=== PATIENT | male | born 1935 | race Caucasian/White ===

== ENCOUNTER 2017-06-02 11:01 | Inpatient (IN) | payer OTHER, BC ==
[~2017-06-02] VITALS: Ht 182.9 cm; Wt 93.6 kg
[~2017-06-02 11:01] MED LIST: ALLOPURINOL300 MG PO; AMMONIUM LACTA140 GM TP; ASPIRIN EC325 MG PO; DUONEB 2.5-0.5 M3 ML AEROSOL; GLIMEPIRIDE2 MG PO; GLUCOSE GEL15 GM PO; LATANOPROST2.5 ML BOTH EYES; LIPITOR20 MG PO; LISINOPRIL20 MG PO; METOPROLOL TAR100 MG PO; METOPROLOL TART50 MG PO; NORCO 5/3251 TABLET PO; NORVASC10 MG PO; ROBITUSSIN DM118 ML PO; SIMVASTATIN40 MG PO; TIMOLOL MALEATE15 M1 BOTH EYES; TRAMADOL HCL50 MG PO; TYLENOL REGULA325 MG PO; WARFARIN SODIU2.5 MG PO
[2017-06-02 13:09] LABS: BASOPHIL (%) 0.4 % (0-1); BASOPHIL COUNT 0.1 K/uL (0-0.1); EOSINOPHIL (%) 0.1 % (0-5); HEMATOCRIT 40.1 % (38.0-50.0); HEMOGLOBIN 13.7 G/DL (12.5-16.6); IMMATURE GRANULOCYTE (%) 0.6 % (0.0-0.7); LYMPHOCYTE (%) 5.8 % (15-42); LYMPHOCYTE COUNT 0.8 K/uL (1.0-2.8); MCH 30.1 PG (29.0-34.0); MCHC 34.2 G/DL (30.0-36.0); MCV 88.1 FL (86-99); MONOCYTE (%) 9.2 % (3-12); MONOCYTE COUNT 1.3 K/uL (0-0.8); NEUTROPHIL (%) 83.9 % (45-76); NEUTROPHIL COUNT 11.9 K/uL (1.8-6.4); PLATELET COUNT 141 K/uL (156-360); RBC DIS.WIDTH-CV 13.4 % (11.8-14.6); RBC DIS.WIDTH-SD 43.8 % (39-53); RED BLOOD COUNT 4.55 M/uL (4.00-5.50); WHITE BLOOD COUNT 14.2 K/uL (4.1-10.2)
[2017-06-02 13:20] LABS: CHLORIDE 107 mEq/L (99-109); POTASSIUM 4.1 mEq/L (3.7-5.4); SODIUM 139 mEq/L (136-147)
[2017-06-02 13:21] LABS: INTER. NORMALIZED RATIO 1.3
[2017-06-02 13:22] LABS: GLUCOSE 134 mg/dL (70-99)
[2017-06-02 13:24] LABS: PTT 27.7 SEC (25-37)
[2017-06-02 13:26] LABS: CREATININE 1.1 mg/dL (0.6-1.3); GFR ESTIMATE (CALCULATED) > 59 mL/min/ (58.99-99999)
[2017-06-02 13:27] LABS: UREA NITROGEN (BUN) 21 mg/dL (9-23)
[2017-06-02] MEDS ORDERED: FUROSEMIDE40 MG PO (15:36)
[2017-06-02] MEDS ORDERED: ERGOCALCIF50000 UNIT PO (15:37)
[2017-06-02] MEDS ORDERED: COLACE100 MG PO (15:37)
[2017-06-02 16:14] LABS: TROP-I INTERPRETATION NEGATIVE; TROPONIN-I 0.02 ng/mL (0.0-0.30)
[2017-06-02 22:10] LABS: APPEARANCE SL.HAZY ((CLEAR)); BILIRUBIN NEGATIVE; BLOOD SMALL; COLOR YELLOW ((YELLOW)); GLUCOSE (STRIP) NEGATIVE; KETONES 20; LEUKOCYTES NEGATIVE; NITRITE NEGATIVE; PROTEIN (STRIP) NEGATIVE; SPECIFIC GRAVITY 1.018 (1.000-1.030)
[2017-06-02 22:14] LABS: BACTERIA RARE /HPF; EPITHELIAL CELLS NONE SEEN /HPF; HYALINE CASTS 0-5 /LPF; MUCUS TRACE /LPF; RED BLOOD CELLS 15-20 /HPF (0-5); UCUL ADDED? YES
[2017-06-02 22:40] LABS: TROP-I INTERPRETATION NEGATIVE; TROPONIN-I 0.08 ng/mL (0.0-0.30)
[2017-06-03 06:49] LABS: HEMATOCRIT 34.3 % (38.0-50.0); HEMOGLOBIN 11.7 G/DL (12.5-16.6); MCH 30.6 PG (29.0-34.0); MCHC 34.1 G/DL (30.0-36.0); MCV 89.8 FL (86-99); PLATELET COUNT 135 K/uL (156-360); RBC DIS.WIDTH-CV 13.8 % (11.8-14.6); RBC DIS.WIDTH-SD 45.1 % (39-53); RED BLOOD COUNT 3.82 M/uL (4.00-5.50); WHITE BLOOD COUNT 10.4 K/uL (4.1-10.2)
[2017-06-03 07:24] LABS: CHLORIDE 108 MEQ/L (99-109); GFR ESTIMATE (CALCULATED) > 59 mL/min/ (58.99-99999); GLUCOSE 140 mg/dL (70-99); POTASSIUM 4.5 MEQ/L (3.7-5.4); SODIUM 140 MEQ/L (136-147); UREA NITROGEN (BUN) 23 mg/dL (9-23)
[2017-06-03 12:28] VITALS: BP 116/58
[2017-06-03 15:42] VITALS: BP 123/59
[2017-06-03 19:58] VITALS: BP 140/84
[2017-06-03 23:48] VITALS: BP 143/68
[2017-06-04 03:52] VITALS: BP 147/74
[2017-06-04 05:54] LABS: BASOPHIL (%) 0.3 % (0-1); EOSINOPHIL (%) 0 % (0-5); HEMATOCRIT 33.5 % (38.0-50.0); IMMATURE GRANULOCYTE (%) 0.8 % (0.0-0.7); LYMPHOCYTE (%) 7.4 % (15-42); MCH 29.7 PG (29.0-34.0); MCHC 32.8 G/DL (30.0-36.0); MCV 90.5 FL (86-99); MONOCYTE (%) 13.1 % (3-12); MONOCYTE COUNT 1.8 K/uL (0-0.8); NEUTROPHIL (%) 78.4 % (45-76); NEUTROPHIL COUNT 10.5 K/uL (1.8-6.4); PLATELET COUNT 132 K/uL (156-360); RBC DIS.WIDTH-CV 14.1 % (11.8-14.6); RBC DIS.WIDTH-SD 46.4 % (39-53); WHITE BLOOD COUNT 13.3 K/uL (4.1-10.2)
[2017-06-04 08:22] VITALS: BP 119/64
[2017-06-04 11:06] VITALS: BP 146/84
[2017-06-04 20:00] VITALS: BP 123/60
[2017-06-04 23:23] VITALS: BP 142/88
[2017-06-05 06:01] LABS: BASOPHIL (%) 0.6 % (0-1); BASOPHIL COUNT 0.1 K/uL (0-0.1); EOSINOPHIL (%) 0.9 % (0-5); EOSINOPHIL COUNT 0.1 K/uL (0-0.3); HEMATOCRIT 30.8 % (38.0-50.0); HEMOGLOBIN 10.3 G/DL (12.5-16.6); IMMATURE GRANULOCYTE (%) 0.9 % (0.0-0.7); LYMPHOCYTE (%) 12.7 % (15-42); LYMPHOCYTE COUNT 1.6 K/uL (1.0-2.8); MCH 30.7 PG (29.0-34.0); MCHC 33.4 G/DL (30.0-36.0); MCV 91.9 FL (86-99); MONOCYTE (%) 12.3 % (3-12); MONOCYTE COUNT 1.5 K/uL (0-0.8); NEUTROPHIL (%) 72.6 % (45-76); PLATELET COUNT 139 K/uL (156-360); RBC DIS.WIDTH-CV 14.2 % (11.8-14.6); RBC DIS.WIDTH-SD 47.8 % (39-53); RED BLOOD COUNT 3.35 M/uL (4.00-5.50); WHITE BLOOD COUNT 12.3 K/uL (4.1-10.2)
[2017-06-05 06:16] LABS: CHLORIDE 109 MEQ/L (99-109); POTASSIUM 4.1 MEQ/L (3.7-5.4); SODIUM 141 MEQ/L (136-147)
[2017-06-05 06:23] LABS: GFR ESTIMATE (CALCULATED) > 59 mL/min/ (58.99-99999); UREA NITROGEN (BUN) 30 mg/dL (9-23)
[2017-06-05 06:24] LABS: GLUCOSE 95 mg/dL (70-99)
[2017-06-05 08:08] VITALS: BP 137/94
[2017-06-05 11:56] VITALS: BP 115/58
[2017-06-05 16:09] VITALS: BP 122/83
[2017-06-05 19:39] VITALS: BP 121/64
[2017-06-05 23:25] VITALS: BP 126/66
[2017-06-06 04:51] VITALS: BP 162/77
[2017-06-06 07:42] VITALS: BP 137/86
[2017-06-06 09:21] LABS: BASOPHIL (%) 0.6 % (0-1); BASOPHIL COUNT 0.1 K/uL (0-0.1); EOSINOPHIL (%) 1.1 % (0-5); EOSINOPHIL COUNT 0.1 K/uL (0-0.3); HEMATOCRIT 29.5 % (38.0-50.0); HEMOGLOBIN 10.1 G/DL (12.5-16.6); IMMATURE GRANULOCYTE (%) 0.9 % (0.0-0.7); LYMPHOCYTE (%) 10.9 % (15-42); LYMPHOCYTE COUNT 1.2 K/uL (1.0-2.8); MCHC 34.2 G/DL (30.0-36.0); MCV 90.5 FL (86-99); MONOCYTE (%) 10.8 % (3-12); MONOCYTE COUNT 1.2 K/uL (0-0.8); NEUTROPHIL (%) 75.7 % (45-76); NEUTROPHIL COUNT 8.2 K/uL (1.8-6.4); PLATELET COUNT 158 K/uL (156-360); RBC DIS.WIDTH-CV 14.2 % (11.8-14.6); RBC DIS.WIDTH-SD 46.1 % (39-53); RED BLOOD COUNT 3.26 M/uL (4.00-5.50); WHITE BLOOD COUNT 10.9 K/uL (4.1-10.2)
[2017-06-06 09:47] LABS: CHLORIDE 107 MEQ/L (99-109); CREATININE 1.1 MG/DL (0.6-1.3); GFR ESTIMATE (CALCULATED) > 59 mL/min/ (58.99-99999); GLUCOSE 157 mg/dL (70-99); POTASSIUM 4.3 MEQ/L (3.7-5.4); SODIUM 138 MEQ/L (136-147); UREA NITROGEN (BUN) 30 mg/dL (9-23)
[2017-06-06 11:18] VITALS: BP 120/63
[2017-06-06 16:52] VITALS: BP 118/62
[2017-06-06 19:55] VITALS: BP 101/56
[2017-06-06 23:24] VITALS: BP 120/69
[2017-06-07 03:20] VITALS: BP 121/65
[2017-06-07 08:15] VITALS: BP 126/70
[2017-06-07 11:35] VITALS: BP 122/61
[2017-06-07] MEDS ORDERED: XARELTO10 MG PO (13:18)
[2017-06-07] MEDS ORDERED: PANTOPRAZOLE SO40 MG PO (13:19)
[2017-06-07] MEDS ORDERED: NOVOLOG 10100 UNITS/ SC (13:19)
[2017-06-07] MEDS ORDERED: DOCUSATE SODIU100 MG PO (13:20)
[2017-06-07] MEDS ORDERED: OXYCODONE-APAP1 EACH PO ×2 (13:20→17:22)
[2017-06-07] MEDS ORDERED: ONDANSETRON4 MG/2 ML IV (13:20)
[2017-06-07 15:29] VITALS: BP 147/65
== END 2017-06-07 17:30 | DRG 481 ==
LOC: EME 11:01 → EDOF 14:08 → 3EAST 14:08 → ENRESERV 14:09 → EDOF 14:27 → ENRESERV 06-03 10:56 → 3EAST 06-03 11:56
PROVIDERS: Emergency Medicine; Internal Medicine; Orthopaedic Surgery; Specialist
DX: S72.142A Displaced intertrochanteric fracture of left femur, initial encounter for closed fracture (principal); D62 Acute posthemorrhagic anemia; K92.0 Hematemesis; M25.462 Effusion, left knee; N40.0 Benign prostatic hyperplasia without lower urinary tract symptoms; W01.0XXA Fall on same level from slipping, tripping and stumbling without subsequent striking against object, initial encounter; D69.6 Thrombocytopenia, unspecified; I10 Essential (primary) hypertension; E78.5 Hyperlipidemia, unspecified; I25.10 Atherosclerotic heart disease of native coronary artery without angina pectoris; I48.2 Chronic atrial fibrillation; K20.9 Esophagitis, unspecified; K27.9 Peptic ulcer, site unspecified, unspecified as acute or chronic, without hemorrhage or perforation; E11.51 Type 2 diabetes mellitus with diabetic peripheral angiopathy without gangrene; F03.90 Unspecified dementia, unspecified severity, without behavioral disturbance, psychotic disturbance, mood disturbance, and anxiety; J45.909 Unspecified asthma, uncomplicated; M10.9 Gout, unspecified; M25.562 Pain in left knee; Z60.2 Problems related to living alone; G89.29 Other chronic pain; G89.11 Acute pain due to trauma; M17.12 Unilateral primary osteoarthritis, left knee; Y93.E8 Activity, other personal hygiene; Y92.002 Bathroom of unspecified non-institutional (private) residence as the place of occurrence of the external cause; Z87.891 Personal history of nicotine dependence; Z86.73 Personal history of transient ischemic attack (TIA), and cerebral infarction without residual deficits; Z90.49 Acquired absence of other specified parts of digestive tract; Z92.3 Personal history of irradiation; Z85.828 Personal history of other malignant neoplasm of skin; Z79.01 Long term (current) use of anticoagulants; I25.2 Old myocardial infarction; Z85.46 Personal history of malignant neoplasm of prostate; Z86.718 Personal history of other venous thrombosis and embolism; Z91.81 History of falling; Z88.0 Allergy status to penicillin; Z88.2 Allergy status to sulfonamides; Z79.4 Long term (current) use of insulin
CPT/HCPCS: 70450; 72040; 73501; 73522; 73560; 76000; 80048; 81003; 82948; 84484; 85014; 85018; 85025; 85027; 85610; 85730; 86850; 86900; 86901; 87086; 93005; 94799; 97530 GP; 99281; 99285; C1713; C9113; J0690; J1170; J1815; J2250; J2270; J2405; J2765; J3010; J3480; J7030; J7050; J7120

== ENCOUNTER 2017-06-16 22:42 | Emergency (ER) | payer OTHER, BC ==
[~2017-06-16] VITALS: Ht 188 cm; Wt 96.1 kg
[~2017-06-16 22:42] MED LIST changes: +COLACE100 MG PO; +DOCUSATE SODIU100 MG PO; +ERGOCALCIF50000 UNIT PO; +FUROSEMIDE40 MG PO; +NOVOLOG 10100 UNITS/ SC; +ONDANSETRON4 MG/2 ML IV; +OXYCODONE-APAP1 EACH PO; +PANTOPRAZOLE SO40 MG PO; +XARELTO10 MG PO
[2017-06-16 23:20] LABS: BASOPHIL (%) 0.7 % (0-1); BASOPHIL COUNT 0.1 K/uL (0-0.1); EOSINOPHIL COUNT 0.2 K/uL (0-0.3); HEMATOCRIT 35.2 % (38.0-50.0); HEMOGLOBIN 11.7 G/DL (12.5-16.6); LYMPHOCYTE (%) 15.8 % (15-42); LYMPHOCYTE COUNT 1.4 K/uL (1.0-2.8); MCH 30.5 PG (29.0-34.0); MCHC 33.2 G/DL (30.0-36.0); MCV 91.9 FL (86-99); MONOCYTE (%) 10.8 % (3-12); MONOCYTE COUNT 0.9 K/uL (0-0.8); NEUTROPHIL (%) 69.7 % (45-76); NEUTROPHIL COUNT 6.1 K/uL (1.8-6.4); RBC DIS.WIDTH-CV 15.9 % (11.8-14.6); RBC DIS.WIDTH-SD 52.1 % (39-53); RED BLOOD COUNT 3.83 M/uL (4.00-5.50); WHITE BLOOD COUNT 8.7 K/uL (4.1-10.2)
[2017-06-16 23:22] LABS: PLATELET COUNT 298 K/uL (156-360)
[2017-06-16 23:24] LABS: INTER. NORMALIZED RATIO 1.6
[2017-06-16 23:27] LABS: ALBUMIN 3.3 g/dL (3.2-4.8); CHLORIDE 105 mEq/L (99-109); PTT 32.1 SEC (25-37); SODIUM 138 mEq/L (136-147)
[2017-06-16 23:30] LABS: GLUCOSE 104 mg/dL (70-99); TOTAL PROTEIN 5.8 g/dL (6.4-8.3)
[2017-06-16 23:32] LABS: TOTAL BILIRUBIN 2.3 mg/dL (0.0-1.0)
[2017-06-16 23:33] LABS: APPEARANCE CLEAR ((CLEAR)); BILIRUBIN NEGATIVE; BLOOD NEGATIVE; COLOR YELLOW ((YELLOW)); GLUCOSE (STRIP) NEGATIVE; KETONES NEGATIVE; LEUKOCYTES NEGATIVE; NITRITE NEGATIVE; PROTEIN (STRIP) NEGATIVE; SPECIFIC GRAVITY 1.014 (1.000-1.030); UCUL ADDED? NO
[2017-06-16 23:33] LABS: ALKALINE PHOSPHATASE 111 IU/L (3-129); CREATININE 0.9 mg/dL (0.6-1.3); GFR ESTIMATE (CALCULATED) > 59 mL/min/ (58.99-99999)
[2017-06-16 23:35] LABS: AST (GOT) 14 IU/L (2-34); DIRECT BILIRUBIN 0.9 mg/dL (0.0-0.3); UREA NITROGEN (BUN) 19 mg/dL (9-23)
[2017-06-16 23:36] LABS: ALT (GPT) 14 IU/L (3-49)
[2017-06-16 23:37] LABS: LIPASE 49 U/L (1.0-51.0)
[2017-06-17 01:51] VITALS: BP 132/80
== END 2017-06-17 02:17 ==
LOC: EME → EDBD 22:42 → EME 06-17 02:17
PROVIDERS: Emergency Medicine
DX: R41.0 Disorientation, unspecified (principal); Z98.890 Other specified postprocedural states; I11.0 Hypertensive heart disease with heart failure; I50.9 Heart failure, unspecified; I25.2 Old myocardial infarction; J45.909 Unspecified asthma, uncomplicated; E78.5 Hyperlipidemia, unspecified; E11.9 Type 2 diabetes mellitus without complications; F32.9 Major depressive disorder, single episode, unspecified; Z85.46 Personal history of malignant neoplasm of prostate; Z87.891 Personal history of nicotine dependence; Z86.73 Personal history of transient ischemic attack (TIA), and cerebral infarction without residual deficits; Z88.0 Allergy status to penicillin; Z88.2 Allergy status to sulfonamides
CPT/HCPCS: 70450; 71045; 80048; 80076; 81003; 83690; 83880; 85025; 85610; 85730; 93005; 99281; 99285

== ENCOUNTER 2017-10-24 16:09 | Emergency (ER) | payer OTHER, BC ==
[~2017-10-24] VITALS: Ht 185.4 cm; Wt 99.1 kg
[2017-10-24] MEDS ORDERED: ULTRAM50 MG PO (17:25)
[2017-10-24 17:46] VITALS: BP 142/87
[2017-10-24] MEDS ORDERED: XARELTO20 MG PO (23:44)
[2017-10-24] MEDS ORDERED: PRILOSEC20 MG PO (23:45)
[2017-10-24] MEDS ORDERED: COLACE100 MG PO (23:45)
== END 2017-10-24 17:47 | disposition home or self-care (01) ==
LOC: EME 16:09
DX: M17.0 Bilateral primary osteoarthritis of knee (principal); E11.9 Type 2 diabetes mellitus without complications; I10 Essential (primary) hypertension; E78.5 Hyperlipidemia, unspecified; J45.909 Unspecified asthma, uncomplicated; I25.2 Old myocardial infarction; F32.9 Major depressive disorder, single episode, unspecified; Z85.46 Personal history of malignant neoplasm of prostate; Z86.73 Personal history of transient ischemic attack (TIA), and cerebral infarction without residual deficits; Z87.891 Personal history of nicotine dependence; Z88.2 Allergy status to sulfonamides; Z88.0 Allergy status to penicillin
CPT/HCPCS: 99281; 99283

== ENCOUNTER 2017-10-24 19:15 | Inpatient (IN) | payer OTHER, BC ==
[~2017-10-24] VITALS: Ht 185.4 cm; Wt 95.0 kg
[~2017-10-24 19:15] MED LIST changes: +ULTRAM50 MG PO
[2017-10-24 20:11] LABS: BASOPHIL (%) 0.3 % (0-1); BASOPHIL COUNT 0.1 K/uL (0-0.1); EOSINOPHIL (%) 0 % (0-5); HEMATOCRIT 39.4 % (38.0-50.0); HEMOGLOBIN 13.4 G/DL (12.5-16.6); IMMATURE GRANULOCYTE (%) 0.8 % (0.0-0.7); LYMPHOCYTE (%) 5.1 % (15-42); LYMPHOCYTE COUNT 0.9 K/uL (1.0-2.8); MCH 28.6 PG (29.0-34.0); MCV 84.2 FL (86-99); MONOCYTE COUNT 2.2 K/uL (0-0.8); NEUTROPHIL (%) 81.8 % (45-76); NEUTROPHIL COUNT 14.6 K/uL (1.8-6.4); PLATELET COUNT 170 K/uL (156-360); RBC DIS.WIDTH-CV 15.1 % (11.8-14.6); RBC DIS.WIDTH-SD 46.1 % (39-53); RED BLOOD COUNT 4.68 M/uL (4.00-5.50); WHITE BLOOD COUNT 17.9 K/uL (4.1-10.2)
[2017-10-24 20:20] LABS: ALBUMIN 3.8 g/dL (3.2-4.8)
[2017-10-24 20:21] LABS: CHLORIDE 105 mEq/L (99-109); SODIUM 139 mEq/L (136-147)
[2017-10-24 20:23] LABS: GLUCOSE 138 mg/dL (70-99); TOTAL PROTEIN 6.8 g/dL (6.4-8.3)
[2017-10-24 20:25] LABS: TOTAL BILIRUBIN 4.2 mg/dL (0.0-1.0)
[2017-10-24 20:26] LABS: ALKALINE PHOSPHATASE 131 IU/L (3-129)
[2017-10-24 20:27] LABS: CREATININE 1.3 mg/dL (0.6-1.3); GFR ESTIMATE (CALCULATED) 56 mL/min/ (58.99-99999)
[2017-10-24 20:28] LABS: AST (GOT) 121 IU/L (2-34); UREA NITROGEN (BUN) 26 mg/dL (9-23)
[2017-10-24 20:30] LABS: ALT (GPT) 60 IU/L (3-49); LIPASE 4 U/L (1.0-51.0)
[2017-10-24 20:43] LABS: TROP-I INTERPRETATION NEGATIVE; TROPONIN-I 0.11 ng/mL (0.0-0.30)
[2017-10-24] MEDS ORDERED: XARELTO20 MG PO (23:44)
[2017-10-24] MEDS ORDERED: PRILOSEC20 MG PO (23:45)
[2017-10-24] MEDS ORDERED: COLACE100 MG PO (23:45)
[2017-10-25] VITALS (7 sets, daily range): BP systolic 127–159; BP diastolic 61–87
[2017-10-25 01:49] LABS: HEMATOCRIT 35.1 % (38.0-50.0); HEMOGLOBIN 11.7 G/DL (12.5-16.6); MCH 27.9 PG (29.0-34.0); MCHC 33.3 G/DL (30.0-36.0); MCV 83.8 FL (86-99); PLATELET COUNT 143 K/uL (156-360); RBC DIS.WIDTH-CV 15.2 % (11.8-14.6); RBC DIS.WIDTH-SD 45.7 % (39-53); RED BLOOD COUNT 4.19 M/uL (4.00-5.50); WHITE BLOOD COUNT 14.7 K/uL (4.1-10.2)
[2017-10-25 07:02] LABS: TROP-I INTERPRETATION NEGATIVE; TROPONIN-I 0.11 ng/mL (0.0-0.30)
[2017-10-25 08:32] LABS: INTER. NORMALIZED RATIO 2.2
[2017-10-25 08:35] LABS: PTT 34.6 SEC (25-37)
[2017-10-25 12:25] LABS: TROP-I INTERPRETATION NEGATIVE; TROPONIN-I 0.11 ng/mL (0.0-0.30)
[2017-10-26 05:19] VITALS: BP 143/85
[2017-10-26 06:20] LABS: BASOPHIL (%) 0.3 % (0-1); BASOPHIL COUNT 0.1 K/uL (0-0.1); EOSINOPHIL (%) 0.2 % (0-5); HEMATOCRIT 37.3 % (38.0-50.0); LYMPHOCYTE (%) 5.7 % (15-42); LYMPHOCYTE COUNT 0.9 K/uL (1.0-2.8); MCH 27.3 PG (29.0-34.0); MCHC 32.2 G/DL (30.0-36.0); MCV 84.8 FL (86-99); MONOCYTE (%) 11.6 % (3-12); MONOCYTE COUNT 1.8 K/uL (0-0.8); NEUTROPHIL (%) 81.2 % (45-76); NEUTROPHIL COUNT 12.3 K/uL (1.8-6.4); PLATELET COUNT 157 K/uL (156-360); RBC DIS.WIDTH-CV 15.1 % (11.8-14.6); RBC DIS.WIDTH-SD 46.3 % (39-53); WHITE BLOOD COUNT 15.1 K/uL (4.1-10.2)
[2017-10-26 06:28] LABS: INTER. NORMALIZED RATIO 1.5
[2017-10-26 06:53] LABS: ALBUMIN 2.7 G/DL (3.2-4.8); ALKALINE PHOSPHATASE 89 IU/L (3-129); ALT (GPT) 35 IU/L (3-49); AST (GOT) 31 IU/L (2-34); CHLORIDE 107 MEQ/L (99-109); CREATININE 0.9 MG/DL (0.6-1.3); GFR ESTIMATE (CALCULATED) > 59 mL/min/ (58.99-99999); GLUCOSE 113 mg/dL (70-99); POTASSIUM 3.9 MEQ/L (3.7-5.4); SODIUM 139 MEQ/L (136-147); TOTAL BILIRUBIN 1.7 MG/DL (0.0-1.0); TOTAL PROTEIN 5.2 G/DL (6.4-8.3); UREA NITROGEN (BUN) 23 mg/dL (9-23)
[2017-10-26 07:24] VITALS: BP 137/65
[2017-10-26 11:46] VITALS: BP 124/65
[2017-10-26 14:31] VITALS: BP 151/71
[2017-10-26 19:39] VITALS: BP 146/72
[2017-10-26 23:30] VITALS: BP 133/71
[2017-10-27 03:20] VITALS: BP 152/82
[2017-10-27 06:02] LABS: HEMATOCRIT 35.7 % (38.0-50.0); HEMOGLOBIN 11.6 G/DL (12.5-16.6); MCHC 32.5 G/DL (30.0-36.0); PLATELET COUNT 158 K/uL (156-360); RBC DIS.WIDTH-SD 45.1 % (39-53); WHITE BLOOD COUNT 8.6 K/uL (4.1-10.2)
[2017-10-27 06:27] LABS: ALBUMIN 2.7 G/DL (3.2-4.8); ALKALINE PHOSPHATASE 78 IU/L (3-129); ALT (GPT) 25 IU/L (3-49); AST (GOT) 27 IU/L (2-34); CHLORIDE 108 MEQ/L (99-109); CREATININE 0.8 MG/DL (0.6-1.3); GFR ESTIMATE (CALCULATED) > 59 mL/min/ (58.99-99999); GLUCOSE 81 mg/dL (70-99); POTASSIUM 3.6 MEQ/L (3.7-5.4); SODIUM 139 MEQ/L (136-147); TOTAL BILIRUBIN 1.8 MG/DL (0.0-1.0); TOTAL PROTEIN 5.4 G/DL (6.4-8.3); UREA NITROGEN (BUN) 21 mg/dL (9-23)
[2017-10-27 06:55] VITALS: BP 128/65
[2017-10-27 15:18] VITALS: BP 135/71
[2017-10-27 19:22] VITALS: BP 154/79
[2017-10-27 22:50] VITALS: BP 158/58
[2017-10-28 04:14] VITALS: BP 160/70
[2017-10-28 05:39] LABS: BASOPHIL (%) 0.6 % (0-1); EOSINOPHIL (%) 3.8 % (0-5); EOSINOPHIL COUNT 0.3 K/uL (0-0.3); HEMATOCRIT 34.6 % (38.0-50.0); HEMOGLOBIN 11.5 G/DL (12.5-16.6); IMMATURE GRANULOCYTE (%) 0.8 % (0.0-0.7); LYMPHOCYTE (%) 14.4 % (15-42); MCH 27.6 PG (29.0-34.0); MCHC 33.2 G/DL (30.0-36.0); MONOCYTE (%) 13.2 % (3-12); MONOCYTE COUNT 0.9 K/uL (0-0.8); NEUTROPHIL (%) 67.2 % (45-76); NEUTROPHIL COUNT 4.8 K/uL (1.8-6.4); PLATELET COUNT 162 K/uL (156-360); RBC DIS.WIDTH-CV 14.8 % (11.8-14.6); RBC DIS.WIDTH-SD 45.2 % (39-53); RED BLOOD COUNT 4.17 M/uL (4.00-5.50); WHITE BLOOD COUNT 7.1 K/uL (4.1-10.2)
[2017-10-28 06:27] LABS: ALBUMIN 2.7 G/DL (3.2-4.8); ALKALINE PHOSPHATASE 74 IU/L (3-129); ALT (GPT) 22 IU/L (3-49); AST (GOT) 20 IU/L (2-34); CHLORIDE 106 MEQ/L (99-109); GFR ESTIMATE (CALCULATED) > 59 mL/min/ (58.99-99999); POTASSIUM 3.6 MEQ/L (3.7-5.4); SODIUM 140 MEQ/L (136-147); UREA NITROGEN (BUN) 21 mg/dL (9-23)
[2017-10-28 06:30] LABS: GLUCOSE 104 mg/dL (70-99); TOTAL BILIRUBIN 1.3 MG/DL (0.0-1.0)
[2017-10-28 08:25] VITALS: BP 191/91
[2017-10-28 11:23] VITALS: BP 166/85
[2017-10-28 15:50] VITALS: BP 177/89
[2017-10-28 21:00] VITALS: BP 184/104
[2017-10-28 23:45] VITALS: BP 170/74
[2017-10-29 03:43] VITALS: BP 157/81
[2017-10-29 05:41] LABS: CHLORIDE 108 MEQ/L (99-109); CREATININE 0.8 MG/DL (0.6-1.3); GFR ESTIMATE (CALCULATED) > 59 mL/min/ (58.99-99999); GLUCOSE 92 mg/dL (70-99); POTASSIUM 3.9 MEQ/L (3.7-5.4); SODIUM 142 MEQ/L (136-147); UREA NITROGEN (BUN) 16 mg/dL (9-23)
[2017-10-29 08:06] VITALS: BP 140/96
[2017-10-29] MEDS ORDERED: ASPIR-LOW81 MG PO (09:50)
[2017-10-29] MEDS ORDERED: LEVAQUIN750 MG PO (09:52)
[2017-10-29] MEDS ORDERED: ULTRAM50 MG PO (09:53)
[2017-10-29 12:01] VITALS: BP 146/75
== END 2017-10-29 14:25 | DRG 872 ==
LOC: EME 19:15 → EDOF 10-25 00:18 → 4EAST 10-25 00:18 → ENRESERV 10-25 00:20 → 4EAST 10-25 02:24 → ENPENDDIS 10-29 → 4EAST 10-29 14:25
PROVIDERS: Emergency Medicine; Hospitalist; Internal Medicine; Internal Medicine Gastroenterology; Physician Assistant Medical; Physician Assistant Surgical; Radiology Diagnostic Radiology
PROC: 0F9430Z Drainage of Gallbladder with Drainage Device, Percutaneous Approach (ICD-10-PCS; principal; 2017-10-26)
DX: A41.9 Sepsis, unspecified organism (principal); K80.66 Calculus of gallbladder and bile duct with acute and chronic cholecystitis without obstruction; B96.1 Klebsiella pneumoniae [K. pneumoniae] as the cause of diseases classified elsewhere; I25.10 Atherosclerotic heart disease of native coronary artery without angina pectoris; E11.9 Type 2 diabetes mellitus without complications; E78.00 Pure hypercholesterolemia, unspecified; I48.2 Chronic atrial fibrillation; Z53.09 Procedure and treatment not carried out because of other contraindication; M17.0 Bilateral primary osteoarthritis of knee; I10 Essential (primary) hypertension; K42.0 Umbilical hernia with obstruction, without gangrene; Z79.01 Long term (current) use of anticoagulants; Z87.891 Personal history of nicotine dependence; Z88.0 Allergy status to penicillin; Z88.2 Allergy status to sulfonamides; Z79.899 Other long term (current) drug therapy; Z91.19 Patient's noncompliance with other medical treatment and regimen; Z86.73 Personal history of transient ischemic attack (TIA), and cerebral infarction without residual deficits; Z85.46 Personal history of malignant neoplasm of prostate; I25.2 Old myocardial infarction; Z91.81 History of falling; E87.2 Acidosis; D68.9 Coagulation defect, unspecified; J44.9 Chronic obstructive pulmonary disease, unspecified; I35.0 Nonrheumatic aortic (valve) stenosis; N40.0 Benign prostatic hyperplasia without lower urinary tract symptoms
CPT/HCPCS: 49405; 74022; 74177; 74181; 80048; 80053; 81003; 83605; 83690; 84484; 85025; 85027; 85610; 85730; 87040; 87070; 87075; 87077; 87186; 87205; 87801; 93005; 97530 GP; 99281; 99283; 99285; C1729; C1769; J1160; J1170; J1644; J1650; J1956; J2405; J3010; J3430; J7050; J7120; S0028; S0030

== ENCOUNTER 2017-10-31 10:50 | Emergency (ER) | payer OTHER, BC ==
[~2017-10-31] VITALS: Ht 185.4 cm; Wt 111.3 kg
[~2017-10-31 10:50] MED LIST changes: +ASPIR-LOW81 MG PO; +LEVAQUIN750 MG PO; +PRILOSEC20 MG PO; +XARELTO20 MG PO
[2017-10-31 11:25] LABS: BASOPHIL (%) 0.6 % (0-1); BASOPHIL COUNT 0.1 K/uL (0-0.1); EOSINOPHIL (%) 1.6 % (0-5); EOSINOPHIL COUNT 0.2 K/uL (0-0.3); HEMOGLOBIN 12.8 G/DL (12.5-16.6); IMMATURE GRANULOCYTE (%) 3.5 % (0.0-0.7); LYMPHOCYTE (%) 8.5 % (15-42); LYMPHOCYTE COUNT 1.1 K/uL (1.0-2.8); MCH 27.9 PG (29.0-34.0); MCHC 33.7 G/DL (30.0-36.0); MONOCYTE (%) 17.1 % (3-12); MONOCYTE COUNT 2.1 K/uL (0-0.8); NEUTROPHIL (%) 68.7 % (45-76); NEUTROPHIL COUNT 8.6 K/uL (1.8-6.4); PLATELET COUNT 219 K/uL (156-360); RBC DIS.WIDTH-CV 15.4 % (11.8-14.6); RBC DIS.WIDTH-SD 46.3 % (39-53); RED BLOOD COUNT 4.58 M/uL (4.00-5.50); WHITE BLOOD COUNT 12.5 K/uL (4.1-10.2)
[2017-10-31 11:31] LABS: INTER. NORMALIZED RATIO 1.6
[2017-10-31 11:33] LABS: ALBUMIN 3.1 g/dL (3.2-4.8); CHLORIDE 107 mEq/L (99-109); POTASSIUM 4.3 mEq/L (3.7-5.4); SODIUM 139 mEq/L (136-147)
[2017-10-31 11:34] LABS: PTT 32.3 SEC (25-37)
[2017-10-31 11:35] LABS: GLUCOSE 141 mg/dL (70-99)
[2017-10-31 11:39] LABS: GFR ESTIMATE (CALCULATED) > 59 mL/min/ (58.99-99999)
[2017-10-31 11:40] LABS: UREA NITROGEN (BUN) 18 mg/dL (9-23)
[2017-10-31 11:42] LABS: ALT (GPT) 19 IU/L (3-49)
[2017-10-31 11:43] LABS: ALKALINE PHOSPHATASE 78 IU/L (3-129); AST (GOT) 27 IU/L (2-34); TOTAL BILIRUBIN 1.2 mg/dL (0.0-1.0)
[2017-10-31 11:45] LABS: TROP-I INTERPRETATION NEGATIVE; TROPONIN-I 0.02 ng/mL (0.0-0.30)
[2017-10-31 13:08] VITALS: BP 133/78
== END 2017-10-31 14:06 ==
LOC: EME 10:50
PROVIDERS: Emergency Medicine
DX: R42 Dizziness and giddiness (principal); I48.91 Unspecified atrial fibrillation; I45.4 Nonspecific intraventricular block; R94.31 Abnormal electrocardiogram [ECG] [EKG]; G93.89 Other specified disorders of brain; R91.8 Other nonspecific abnormal finding of lung field; E11.9 Type 2 diabetes mellitus without complications; I10 Essential (primary) hypertension; J45.909 Unspecified asthma, uncomplicated; E78.5 Hyperlipidemia, unspecified; I25.2 Old myocardial infarction; M10.9 Gout, unspecified; F32.9 Major depressive disorder, single episode, unspecified; Z79.01 Long term (current) use of anticoagulants; Z87.891 Personal history of nicotine dependence; Z87.19 Personal history of other diseases of the digestive system; Z85.46 Personal history of malignant neoplasm of prostate; Z90.49 Acquired absence of other specified parts of digestive tract; Z88.2 Allergy status to sulfonamides; Z88.0 Allergy status to penicillin
CPT/HCPCS: 70450; 71045; 80053; 84484; 85025; 85610; 85730; 93005; 99281; 99284

== ENCOUNTER 2017-12-03 10:42 | Observation (INO) | payer OTHER, BC ==
[~2017-12-03] VITALS: Ht 185.4 cm; Wt 90.1 kg
[2017-12-03 11:32] LABS: HEMATOCRIT 39.2 % (38.0-50.0); HEMOGLOBIN 13.3 G/DL (12.5-16.6); MCH 28.7 PG (29.0-34.0); MCHC 33.9 G/DL (30.0-36.0); MCV 84.5 FL (86-99); PLATELET COUNT 160 K/uL (156-360); RBC DIS.WIDTH-CV 16.4 % (11.8-14.6); RBC DIS.WIDTH-SD 50.7 % (39-53); RED BLOOD COUNT 4.64 M/uL (4.00-5.50); WHITE BLOOD COUNT 7.5 K/uL (4.1-10.2)
[2017-12-03 11:43] LABS: CHLORIDE 110 mEq/L (99-109); POTASSIUM 4.4 mEq/L (3.7-5.4); SODIUM 143 mEq/L (136-147)
[2017-12-03 11:44] LABS: GLUCOSE 94 mg/dL (70-99)
[2017-12-03 11:48] LABS: GFR ESTIMATE (CALCULATED) > 59 mL/min/ (58.99-99999)
[2017-12-03 11:49] LABS: UREA NITROGEN (BUN) 24 mg/dL (9-23)
[2017-12-03 11:54] LABS: TROP-I INTERPRETATION NEGATIVE; TROPONIN-I < 0.01 ng/mL (0.0-0.30)
[2017-12-03 13:17] LABS: ALBUMIN 3.6 g/dL (3.2-4.8)
[2017-12-03 13:20] LABS: TOTAL PROTEIN 6.5 g/dL (6.4-8.3)
[2017-12-03 13:21] LABS: TOTAL BILIRUBIN 1.2 mg/dL (0.0-1.0)
[2017-12-03 13:23] LABS: ALKALINE PHOSPHATASE 101 IU/L (3-129)
[2017-12-03 13:25] LABS: AST (GOT) 14 IU/L (2-34); DIRECT BILIRUBIN 0.5 mg/dL (0.0-0.3)
[2017-12-03 13:26] LABS: ALT (GPT) 13 IU/L (3-49)
[2017-12-03] MEDS ORDERED: DULCOLAX10 MG PR (14:04)
[2017-12-03] MEDS ORDERED: FLEET ENEMA-AD118 ML PR (14:04)
[2017-12-03] MEDS ORDERED: MILK OF MAGN PO (14:07)
[2017-12-03] MEDS ORDERED: TRAMADOL HCL50 MG PO (14:08)
[2017-12-03] MEDS ORDERED: PENTOXIFYLLINE400 MG PO (14:37)
[2017-12-03 15:23] VITALS: BP 146/100
[2017-12-03 18:50] LABS: TROP-I INTERPRETATION NEGATIVE; TROPONIN-I 0.01 ng/mL (0.0-0.30)
[2017-12-03 19:00] VITALS: BP 159/78
[2017-12-04 01:11] LABS: TROP-I INTERPRETATION NEGATIVE; TROPONIN-I < 0.01 ng/mL (0.0-0.30)
[2017-12-04 04:40] VITALS: BP 158/80
[2017-12-04 05:45] LABS: HEMATOCRIT 37.7 % (38.0-50.0); HEMOGLOBIN 12.5 G/DL (12.5-16.6); MCH 28.3 PG (29.0-34.0); MCHC 33.2 G/DL (30.0-36.0); MCV 85.3 FL (86-99); PLATELET COUNT 143 K/uL (156-360); RBC DIS.WIDTH-CV 16.3 % (11.8-14.6); RBC DIS.WIDTH-SD 50.4 % (39-53); RED BLOOD COUNT 4.42 M/uL (4.00-5.50); WHITE BLOOD COUNT 6.5 K/uL (4.1-10.2)
[2017-12-04 06:10] LABS: ALBUMIN 3.3 G/DL (3.2-4.8); ALKALINE PHOSPHATASE 86 IU/L (3-129); ALT (GPT) 9 IU/L (3-49); AST (GOT) 11 IU/L (2-34); CHLORIDE 106 MEQ/L (99-109); GFR ESTIMATE (CALCULATED) > 59 mL/min/ (58.99-99999); GLUCOSE 100 mg/dL (70-99); POTASSIUM 3.9 MEQ/L (3.7-5.4); SODIUM 141 MEQ/L (136-147); UREA NITROGEN (BUN) 22 mg/dL (9-23)
[2017-12-04 06:26] LABS: TOTAL BILIRUBIN 1.1 MG/DL (0.0-1.0)
[2017-12-04 07:30] VITALS: BP 164/92
[2017-12-04] MEDS ORDERED: NITROSTAT0.4 MG SL (08:56)
[2017-12-04] MEDS ORDERED: ASPIRIN81 M2 PO (10:04)
[2017-12-04] MEDS ORDERED: IMDUR30 MG PO (10:19)
== END 2017-12-04 13:08 ==
LOC: EME 10:42 → EDOF 13:43 → 4SOUTH 13:43 → EDOF 13:43 → ENRESERV 13:46 → 4SOUTH 15:23
PROVIDERS: Emergency Medicine; Internal Medicine; Physician Assistant
DX: R07.9 Chest pain, unspecified (principal); I10 Essential (primary) hypertension; E11.9 Type 2 diabetes mellitus without complications; I48.2 Chronic atrial fibrillation; Z79.01 Long term (current) use of anticoagulants; I25.10 Atherosclerotic heart disease of native coronary artery without angina pectoris; I25.2 Old myocardial infarction; N40.0 Benign prostatic hyperplasia without lower urinary tract symptoms; Z85.46 Personal history of malignant neoplasm of prostate; M10.9 Gout, unspecified; F03.90 Unspecified dementia, unspecified severity, without behavioral disturbance, psychotic disturbance, mood disturbance, and anxiety; K80.42 Calculus of bile duct with acute cholecystitis without obstruction; Z86.19 Personal history of other infectious and parasitic diseases; Z85.828 Personal history of other malignant neoplasm of skin; Z82.49 Family history of ischemic heart disease and other diseases of the circulatory system; Z87.891 Personal history of nicotine dependence; Z88.0 Allergy status to penicillin; Z88.2 Allergy status to sulfonamides; Z88.8 Allergy status to other drugs, medicaments and biological substances; Z79.82 Long term (current) use of aspirin
CPT/HCPCS: 71046; 80048; 80053; 80076; 82948; 84484; 85027; 93005; 99281; 99285; G0378; J1644